=== PATIENT | male | born 1935 | race Caucasian/White ===

== ENCOUNTER → 2016-08-09 | Outpatient (CLI) | payer OTHER ==
[~2016-08-09] MED LIST: ALBUAER3 IN; ASPI81CH43 GT; ATEN-60 OR; ATOR40TA52 PO; BENA10TA3 OR; FLUT500M6 IN; IBUP400T21 XX; MELO-85 PO; METF-312 OR; OMEP20CA5 PO; ZOLP10TA OR
[2016-08-09 09:24] LABS: Basophils # (auto) 0 uL; Basophils % (auto) 0.4 % (0.0-2.0); Eosinophils # (auto) 0.6 uL; Eosinophils % (auto) 9.4 % (0.0-7.0); Hemoglobin 12.9 g/dL (13.5-17.5); Lymphocytes # (auto) 0.8 uL; Lymphocytes % (auto) 12.2 % (10.0-50.0); Mean Corpuscular Hemoglobin 31.9 pg (28.0-32.0); Mean Corpuscular Hgb Conc. 31.5 g/dL (32.0-36.0); Mean Corpuscular Volume 101.3 fL (80.0-100.0); Mean Platelet Volume 9.8 fL (7.4-10.4); Monocytes # (auto) 0.6 uL; Neutrophils # (auto) 4.3 uL; Platelet Count (auto) 260 10^3/uL (140-450); Red Cell Distribution Width 13.9 % (11.6-16.0); SUSPECT VIEW TRANSMISSION; White Blood Cell 6.3 10^3/uL (4.4-10.8)
[2016-08-09 09:36] LABS: Urine Bilirubin Negative (Negative); Urine Blood Negative /uL (Negative); Urine Color Yellow (Yellow); Urine Glucose Normal (Normal); Urine Hyaline Cast FEW /lpf (0 - 2); Urine Ketone Negative (Negative); Urine Nitrite Negative (Negative); Urine RBC <1 /hpf (0 - 3); Urine Squamous Epithelial Cell FEW /hpf (<5); Urine Urobilinogen Normal (Negative); Urine pH 5.5 (5.0-8.0)
[2016-08-09 10:05] LABS: Albumin 3.7 g/dL (3.4-5.0); BUN/Creatinine Ratio 19.5; Bilirubin, Total 1.1 mg/dL (0.2-1.0); Calcium 9.5 mg/dL (8.5-10.1); Potassium 5.3 mmol/L (3.5-5.1); Total Protein 7.3 g/dL (6.4-8.2)
== END | disposition home or self-care (01) ==
LOC: LAB 08:46
PROVIDERS: ATTEND Internal Medicine
DX: Z00.00 Encounter for general adult medical examination without abnormal findings (principal); E11.9 Type 2 diabetes mellitus without complications; E55.9 Vitamin D deficiency, unspecified
CPT/HCPCS: 36415; 80053; 80061; 81001; 82043; 82306; 83036; 84153; 85025

== ENCOUNTER → 2016-10-06 | Outpatient (CLI) | payer OTHER ==
[2016-10-06 10:47] LABS: Basophils # (auto) 0 uL; Basophils % (auto) 0.2 % (0.0-2.0); Eosinophils # (auto) 0.2 uL; Eosinophils % (auto) 4.4 % (0.0-7.0); Hematocrit 36.2 % (41.0-53.0); Hemoglobin 11.8 g/dL (13.5-17.5); Lymphocytes # (auto) 0.5 uL; Lymphocytes % (auto) 11.5 % (10.0-50.0); Mean Corpuscular Hemoglobin 31.8 pg (28.0-32.0); Mean Corpuscular Hgb Conc. 32.7 g/dL (32.0-36.0); Mean Corpuscular Volume 97.2 fL (80.0-100.0); Mean Platelet Volume 9.3 fL (7.4-10.4); Monocytes # (auto) 0.5 uL; Monocytes % (auto) 12.2 % (0.0-12.0); Neutrophils # (auto) 3.2 uL; Neutrophils % (auto) 71.7 % (37.0-80.0); Platelet Count (auto) 202 10^3/uL (140-450); Red Cell Distribution Width 15.3 % (11.6-16.0); White Blood Cell 4.4 10^3/uL (4.4-10.8)
[2016-10-06 11:11] LABS: Albumin 3.6 g/dL (3.4-5.0); BUN/Creatinine Ratio 17.7; Bilirubin, Total 1.1 mg/dL (0.2-1.0); Calcium 8.8 mg/dL (8.5-10.1); Potassium 5.2 mmol/L (3.5-5.1); Total Protein 6.9 g/dL (6.4-8.2)
== END | disposition home or self-care (01) ==
LOC: LAB 10:30
PROVIDERS: ATTEND Internal Medicine
DX: C34.11 Malignant neoplasm of upper lobe, right bronchus or lung (principal); C61 Malignant neoplasm of prostate
CPT/HCPCS: 36415; 80053; 83615; 84153; 85025

== ENCOUNTER → 2016-11-02 | Outpatient (CLI) | payer OTHER ==
[~2016-11-02] VITALS: Ht 180.3 cm; Wt 80.3 kg
[~2016-11-02] MED LIST changes: +ADENOSINE 67 MG in GIVE UN-DILUTED 0 ML IV STA; +ALBUTEROL SULF 2.5 MG/0.5ML(0.5%) NEB SOLN NEB ONE; +IPRATROPIUM BROM 0.5 MG/2.5ML INH SOL NEB ONE
== END | disposition home or self-care (01) ==
LOC: XY 08:40
PROVIDERS: ATTEND Internal Medicine Cardiovascular Disease
DX: I08.1 Rheumatic disorders of both mitral and tricuspid valves (principal); I27.2 Other secondary pulmonary hypertension
CPT/HCPCS: 78452; 93017; 93306; 96374; A9500; J0153

== ENCOUNTER → 2016-11-08 | Outpatient (CLI) | payer OTHER ==
[~2016-11-08] MED LIST changes: -ADENOSINE 67 MG in GIVE UN-DILUTED 0 ML IV STA; -ALBUTEROL SULF 2.5 MG/0.5ML(0.5%) NEB SOLN NEB ONE; -IPRATROPIUM BROM 0.5 MG/2.5ML INH SOL NEB ONE
[2016-11-08 15:39] LABS: Potassium 4.8 mmol/L (3.5-5.1)
[2016-11-08 15:44] LABS: BUN/Creatinine Ratio 31.3; Calcium 8.4 mg/dL (8.5-10.1)
== END | disposition home or self-care (01) ==
LOC: LAB 14:49
PROVIDERS: ATTEND Internal Medicine
DX: I27.2 Other secondary pulmonary hypertension (principal); E11.42 Type 2 diabetes mellitus with diabetic polyneuropathy
CPT/HCPCS: 36415; 80048

== ENCOUNTER → 2016-12-12 | Outpatient (CLI) | payer OTHER ==
[~2016-12-12] MED LIST changes: -BENA10TA3 OR; +BENA10TA9 OR; -METF-312 OR; +METF-370 OR; -OMEP20CA5 PO; +OMEP20CA74 PO
[2016-12-12 09:40] LABS: Basophils # (auto) 0 uL; Basophils % (auto) 0.3 % (0.0-2.0); CONDITION Y; Eosinophils # (auto) 0.2 uL; Eosinophils % (auto) 3.2 % (0.0-7.0); Hematocrit 35.8 % (41.0-53.0); Hemoglobin 11.8 g/dL (13.5-17.5); Lymphocytes # (auto) 0.6 uL; Lymphocytes % (auto) 9.7 % (10.0-50.0); Mean Corpuscular Hemoglobin 31.8 pg (28.0-32.0); Mean Corpuscular Volume 96.3 fL (80.0-100.0); Mean Platelet Volume 9.2 fL (7.4-10.4); Monocytes # (auto) 0.7 uL; Monocytes % (auto) 11.9 % (0.0-12.0); Neutrophils # (auto) 4.4 uL; Neutrophils % (auto) 74.9 % (37.0-80.0); Platelet Count (auto) 180 10^3/uL (140-450); Red Cell Distribution Width 17.5 % (11.6-16.0); White Blood Cell 5.8 10^3/uL (4.4-10.8)
[2016-12-12 10:41] LABS: Albumin 3.7 g/dL (3.4-5.0); BUN/Creatinine Ratio 18.5; Bilirubin, Total 1.1 mg/dL (0.2-1.0); Calcium 9.5 mg/dL (8.5-10.1); Total Protein 6.9 g/dL (6.4-8.2)
[2016-12-12 10:42] LABS: Uric Acid 11.1 mg/dL (3.5-7.2)
== END | disposition home or self-care (01) ==
LOC: LAB 09:15
DX: M10.00 Idiopathic gout, unspecified site (principal); M45.0 Ankylosing spondylitis of multiple sites in spine; Z79.899 Other long term (current) drug therapy; M06.9 Rheumatoid arthritis, unspecified; M25.50 Pain in unspecified joint; D64.9 Anemia, unspecified; I10 Essential (primary) hypertension
CPT/HCPCS: 36415; 80053; 84550; 85025; 85652; 86141; 86200; 86431; 86812

== ENCOUNTER → 2016-12-19 | Outpatient (CLI) | payer OTHER | END | disposition home or self-care (01) | LOC: LAB 11:00 | PROVIDERS: ATTEND Physician Assistant | DX: D04.8 Carcinoma in situ of skin of other sites (principal) ==

== ENCOUNTER → 2017-01-24 | Outpatient (CLI) | payer OTHER | END | disposition home or self-care (01) | LOC: LAB 10:00 | PROVIDERS: ATTEND Physician Assistant | DX: C44.319 Basal cell carcinoma of skin of other parts of face (principal) ==

== ENCOUNTER → 2017-02-06 | Outpatient (CLI) | payer OTHER ==
[2017-02-06 12:05] LABS: Basophils # (auto) 0 uL; Basophils % (auto) 0.2 % (0.0-2.0); CONDITION Y; Eosinophils # (auto) 0.2 uL; Eosinophils % (auto) 2.4 % (0.0-7.0); Hematocrit 34.6 % (41.0-53.0); Hemoglobin 11.5 g/dL (13.5-17.5); Lymphocytes # (auto) 0.5 uL; Lymphocytes % (auto) 7.5 % (10.0-50.0); Mean Corpuscular Hemoglobin 31.4 pg (28.0-32.0); Mean Corpuscular Hgb Conc. 33.2 g/dL (32.0-36.0); Mean Corpuscular Volume 94.4 fL (80.0-100.0); Mean Platelet Volume 10.6 fL (7.4-10.4); Monocytes # (auto) 0.6 uL; Monocytes % (auto) 8.9 % (0.0-12.0); Neutrophils # (auto) 5.5 uL; Platelet Count (auto) 211 10^3/uL (140-450); Red Cell Distribution Width 16.4 % (11.6-16.0); SUSPECT SEE PRINTOUT; White Blood Cell 6.7 10^3/uL (4.4-10.8)
[2017-02-06 17:34] LABS: Potassium 4.4 mmol/L (3.5-5.1)
[2017-02-06 17:40] LABS: Albumin 3.7 g/dL (3.4-5.0); BUN/Creatinine Ratio 20.1; Calcium 8.7 mg/dL (8.5-10.1)
[2017-02-06 17:59] LABS: Bilirubin, Total 0.9 mg/dL (0.2-1.0); Total Protein 6.6 g/dL (6.4-8.2)
== END | disposition home or self-care (01) ==
LOC: LAB 10:03
PROVIDERS: ATTEND Internal Medicine
DX: C61 Malignant neoplasm of prostate (principal); J44.9 Chronic obstructive pulmonary disease, unspecified; Z95.1 Presence of aortocoronary bypass graft
CPT/HCPCS: 36415; 80053; 83615; 84153; 85025

== ENCOUNTER → 2017-03-28 | Outpatient (CLI) | payer OTHER | LOC: XYW 10:51 | PROVIDERS: ATTEND Internal Medicine Cardiovascular Disease | DX: I08.3 Combined rheumatic disorders of mitral, aortic and tricuspid valves (principal) | CPT/HCPCS: 93306 ==

== ENCOUNTER → 2017-06-06 | Outpatient (CLI) | payer OTHER ==
[~2017-06-06] MED LIST changes: +APIX2.5T OR; +CHOL20007 OR; +COLC1TAB3 PO; +FURO20TA3 PO; +GABA100C9 PO; +GLYB5TAB8 PO; -MELO-85 PO; +MELO1TAB73 PO; +SILD20TA12 OR
== END | disposition home or self-care (01) ==
LOC: LAB 08:47
PROVIDERS: ATTEND Physician Assistant
DX: C44.319 Basal cell carcinoma of skin of other parts of face (principal)

== ENCOUNTER → 2017-06-06 | Outpatient (CLI) | payer OTHER ==
[~2017-06-06] MED LIST changes: -APIX2.5T OR; -CHOL20007 OR; -COLC1TAB3 PO; -FURO20TA3 PO; -GABA100C9 PO; -GLYB5TAB8 PO; -SILD20TA12 OR
[2017-06-06 12:49] LABS: Basophils # (auto) 0 uL; Basophils % (auto) 0.7 % (0.0-2.0); Eosinophils # (auto) 0.2 uL; Eosinophils % (auto) 4.1 % (0.0-7.0); Lymphocytes # (auto) 0.4 uL; Lymphocytes % (auto) 8.5 % (10.0-50.0); Mean Corpuscular Hemoglobin 29.5 pg (28.0-32.0); Mean Corpuscular Hgb Conc. 32.5 g/dL (32.0-36.0); Mean Corpuscular Volume 90.7 fL (80.0-100.0); Mean Platelet Volume 10.2 fL (6.9-10.8); Monocytes # (auto) 0.6 uL; Monocytes % (auto) 14.5 % (0.0-12.0); Neutrophils # (auto) 3.2 uL; Neutrophils % (auto) 72.2 % (37.0-80.0); Platelet Count (auto) 168 10^3/uL (140-450); Red Cell Distribution Width 18.5 % (11.8-14.3); White Blood Cell 4.5 10^3/uL (4.4-10.8)
[2017-06-06 13:07] LABS: Albumin 3.8 g/dL (3.4-5.0); BUN/Creatinine Ratio 16.7; Calcium 8.9 mg/dL (8.5-10.1); Potassium 4.2 mmol/L (3.5-5.1)
[2017-06-06 13:11] LABS: Bilirubin, Total 1.2 mg/dL (0.2-1.0); Total Protein 7.1 g/dL (6.4-8.2)
== END | disposition home or self-care (01) ==
LOC: LAB 11:00
PROVIDERS: ATTEND Internal Medicine
DX: C34.11 Malignant neoplasm of upper lobe, right bronchus or lung (principal); C61 Malignant neoplasm of prostate
CPT/HCPCS: 36415; 80053; 83615; 84153; 85025

== ENCOUNTER → 2017-08-08 | Outpatient (CLI) | payer OTHER ==
[~2017-08-08] MED LIST changes: +APIX2.5T OR; +CHOL20007 OR; +COLC1TAB3 PO; +FURO20TA3 PO; +GABA100C9 PO; +GLYB5TAB8 PO; +SILD20TA12 OR
[2017-08-08 15:00] LABS: Basophils # (auto) 0.1 uL; Basophils % (auto) 1.1 % (0.0-2.0); Eosinophils # (auto) 0.1 uL; Eosinophils % (auto) 1.6 % (0.0-7.0); Hematocrit 32.4 % (41.0-53.0); Hemoglobin 10.6 g/dL (13.5-17.5); Lymphocytes # (auto) 0.4 uL; Lymphocytes % (auto) 7.3 % (10.0-50.0); Mean Corpuscular Hemoglobin 29.8 pg (28.0-32.0); Mean Corpuscular Hgb Conc. 32.7 g/dL (32.0-36.0); Mean Corpuscular Volume 91.2 fL (80.0-100.0); Monocytes # (auto) 0.7 uL; Monocytes % (auto) 12.6 % (0.0-12.0); Neutrophils # (auto) 4.4 uL; Neutrophils % (auto) 77.4 % (37.0-80.0); Platelet Count (auto) 188 10^3/uL (140-450); Red Blood Cells 3.55 10^6/uL (4.5-5.90); Red Cell Distribution Width 18.7 % (11.8-14.3); White Blood Cell 5.7 10^3/uL (4.4-10.8)
[2017-08-08 15:33] LABS: Albumin 3.7 g/dL (3.4-5.0); BUN/Creatinine Ratio 18.5; Bilirubin, Total 1.3 mg/dL (0.2-1.0); Calcium 8.9 mg/dL (8.5-10.1); Potassium 4.3 mmol/L (3.5-5.1); Total Protein 6.9 g/dL (6.4-8.2)
== END | disposition home or self-care (01) ==
LOC: LAB 13:54
PROVIDERS: ATTEND Internal Medicine
DX: C34.11 Malignant neoplasm of upper lobe, right bronchus or lung (principal); C61 Malignant neoplasm of prostate
CPT/HCPCS: 36415; 80053; 83615; 84153; 85025

== ENCOUNTER 2017-08-12 14:53 | Inpatient (IN) | payer OTHER ==
[~2017-08-12] VITALS: Ht 180.3 cm; Wt 90.0 kg
[~2017-08-12 14:53] MED LIST changes: -APIX2.5T OR; -CHOL20007 OR; -COLC1TAB3 PO; -FURO20TA3 PO; -GABA100C9 PO; -GLYB5TAB8 PO; -SILD20TA12 OR
[2017-08-12] MEDS ORDERED: SODIUM CHLORIDE 0.9% 1,000 ML IV ONE (16:34)
[2017-08-12] MEDS ORDERED: ONDANSETRON HCL 4 MG/2 ML VIAL IV ONE (16:45)
[2017-08-12] MEDS ORDERED: KETOROLAC TROMETH 30 MG/ML 1ML VIAL IV ONE (16:45)
[2017-08-12 17:26] LABS: Basophils # (auto) 0.1 uL; Basophils % (auto) 1.3 % (0.0-2.0); Eosinophils # (auto) 0.2 uL; Eosinophils % (auto) 3.1 % (0.0-7.0); Hemoglobin 9.1 g/dL (13.5-17.5); Lymphocytes # (auto) 0.4 uL; Lymphocytes % (auto) 6.7 % (10.0-50.0); Mean Corpuscular Hemoglobin 29.3 pg (28.0-32.0); Mean Corpuscular Hgb Conc. 32.6 g/dL (32.0-36.0); Monocytes # (auto) 0.8 uL; Monocytes % (auto) 12.2 % (0.0-12.0); Neutrophils # (auto) 4.9 uL; Neutrophils % (auto) 76.7 % (37.0-80.0); Nucleated Red Blood Cells % 0.4 %; Platelet Count (auto) 165 10^3/uL (140-450); Red Blood Cells 3.11 10^6/uL (4.5-5.90); Red Cell Distribution Width 18.3 % (11.8-14.3); White Blood Cell 6.4 10^3/uL (4.4-10.8)
[2017-08-12 17:53] LABS: Albumin 3.6 g/dL (3.4-5.0); BUN/Creatinine Ratio 18.6; Bilirubin, Total 1.2 mg/dL (0.2-1.0); Calcium 8.9 mg/dL (8.5-10.1); Magnesium 2.3 mg/dL (1.6-2.6); Potassium 3.9 mmol/L (3.5-5.1); Total Protein 6.6 g/dL (6.4-8.2)
[2017-08-12] MEDS ORDERED: ACETAMINOPHEN 325 MG TAB PO PRN (19:30)
[2017-08-12] MEDS ORDERED: DOCUSATE SOD 100 MG CAP PO PRN (19:30)
[2017-08-12] MEDS ORDERED: HYDROcodone-ACET 5/325MG TAB PO PRN (19:30)
[2017-08-12] MEDS ORDERED: ONDANSETRON HCL 4 MG/2 ML VIAL IV PRN (19:30)
[2017-08-12] MEDS ORDERED: NITROGLYCERIN 0.4 MG SL TAB SL PRN (19:30)
[2017-08-12] MEDS ORDERED: HYDROmorphone HCL 2 MG/ML VL IV PRN (20:00)
[2017-08-12] MEDS ORDERED: DEXTROSE (50%) 50ML SYRG IV PRN (20:00)
[2017-08-12] MEDS: SILDENAFIL CITRATE 20 MG TAB PO SCH (20:16)
[2017-08-12 21:00] VITALS: BP 82/48
[2017-08-12 21:30] VITALS: BP 82/48
[2017-08-12] MEDS: SYMBICORT IN SCH (22:00)
[2017-08-12] MEDS: APIXABAN 2.5 MG TAB PO SCH (22:00)
[2017-08-12] MEDS: SODIUM CHLOR 0.9% PF (SALINE LOCK) 10ML VIAL IV SCH (22:20)
[2017-08-12] MEDS: GABAPENTIN 100 MG CAP PO SCH (22:20)
[2017-08-12] MEDS: ATORVASTATIN 20 MG TAB PO SCH (22:20)
[2017-08-12] MEDS: ACCU-CHEK COMFORT CURVE STRIP VI SCH (22:21)
[2017-08-12] MEDS: FAMOTIDINE 20 MG TAB PO SCH (22:21)
[2017-08-12] MEDS: InsuLIN REG 1unit/0.01ml Soln (100units/ml) SC SCH (22:31)
[2017-08-12] MEDS: TEMAZEPAM 15 MG CAP PO PRN (22:34)
[2017-08-12 23:16] LABS: Urine Bacteria NONE SEEN /hpf (None Seen); Urine Blood Negative /uL (Negative); Urine Hyaline Cast MOD /lpf (0 - 2); Urine Specific Gravity 1.013 (1.001-1.035); Urine WBC 1 /hpf (0 - 3)
[2017-08-13] VITALS (7 sets, daily range): BP systolic 84–96; BP diastolic 39–61
[2017-08-13] MEDS ORDERED: FURO20TA3 PO (00:07)
[2017-08-13] MEDS ORDERED: CHOL20007 OR (00:07)
[2017-08-13] MEDS ORDERED: GABA100C9 PO (00:07)
[2017-08-13] MEDS ORDERED: SILD20TA12 OR (00:07)
[2017-08-13] MEDS ORDERED: GLYB5TAB8 PO (00:07)
[2017-08-13] MEDS ORDERED: APIX2.5T OR (00:07)
[2017-08-13] MEDS ORDERED: COLC1TAB3 PO (00:07)
[2017-08-13] MEDS: SODIUM CHLOR 0.9% PF (SALINE LOCK) 10ML VIAL IV SCH ×3 (06:13→21:29)
[2017-08-13] MEDS: ACCU-CHEK COMFORT CURVE STRIP VI SCH ×4 (06:29→21:29)
[2017-08-13] MEDS: glipiZIDE 5 MG TAB PO SCH (06:30)
[2017-08-13] MEDS: InsuLIN REG 1unit/0.01ml Soln (100units/ml) SC SCH ×4 (06:30→22:00)
[2017-08-13 07:30] LABS: Basophils # (auto) 0 uL; Basophils % (auto) 0.7 % (0.0-2.0); Eosinophils # (auto) 0.3 uL; Eosinophils % (auto) 5.5 % (0.0-7.0); Hematocrit 26.3 % (41.0-53.0); Hemoglobin 8.7 g/dL (13.5-17.5); Lymphocytes # (auto) 0.4 uL; Lymphocytes % (auto) 6.5 % (10.0-50.0); Mean Corpuscular Hemoglobin 29.5 pg (28.0-32.0); Mean Corpuscular Volume 89.6 fL (80.0-100.0); Monocytes # (auto) 0.7 uL; Monocytes % (auto) 12.2 % (0.0-12.0); Neutrophils # (auto) 4.3 uL; Neutrophils % (auto) 75.1 % (37.0-80.0); Platelet Count (auto) 149 10^3/uL (140-450); Red Blood Cells 2.93 10^6/uL (4.5-5.90); White Blood Cell 5.7 10^3/uL (4.4-10.8)
[2017-08-13] MEDS: SILDENAFIL CITRATE 20 MG TAB PO SCH ×3 (07:41→19:36)
[2017-08-13 08:45] LABS: Albumin 3.3 g/dL (3.4-5.0); Bilirubin, Total 1.3 mg/dL (0.2-1.0); Calcium 8.3 mg/dL (8.5-10.1); Potassium 4.3 mmol/L (3.5-5.1); Total Protein 6.4 g/dL (6.4-8.2)
[2017-08-13] MEDS: SYMBICORT IN SCH ×2 (10:00→22:00)
[2017-08-13] MEDS ORDERED: ATENOLOL 25 MG TAB PO SCH (10:00)
[2017-08-13] MEDS ORDERED: SYMBICORT IN SCH (10:00)
[2017-08-13] MEDS ORDERED: ENOXAPARIN SOD 40 MG/0.4 ML SYRINGE SC SCH (10:00)
[2017-08-13] MEDS ORDERED: PATIENTS OWN MEDICATION PO SCH (10:00)
[2017-08-13] MEDS: BENAZEPRIL HCL 10 MG TAB PO SCH (10:00)
[2017-08-13] MEDS: COLCHICINE 0.6 MG TAB PO SCH (10:36)
[2017-08-13] MEDS: ASPirin-EC 81 mg tab PO SCH (10:36)
[2017-08-13] MEDS: PANTOPRAZOLE 40 MG TAB PO SCH (10:36)
[2017-08-13] MEDS: CHOLECALCIFEROL (VITD3) 1,000 UNIT TAB PO SCH (10:36)
[2017-08-13] MEDS: MULTIPLE VITAMIN TAB PO SCH (10:36)
[2017-08-13] MEDS: FUROSEMIDE 20 MG TAB PO SCH (10:37)
[2017-08-13] MEDS: APIXABAN 2.5 MG TAB PO SCH ×2 (10:37→21:28)
[2017-08-13] MEDS: FAMOTIDINE 20 MG TAB PO SCH ×2 (10:38→21:27)
[2017-08-13] MEDS ORDERED: HYDROcodone-ACET 5/325MG TAB PO PRN (11:00)
[2017-08-13] MEDS ORDERED: SODIUM CHLORIDE 0.9% 1,000 ML IV ONE (11:15)
[2017-08-13] MEDS: CALCIUM CARB 500 MG CHEW TAB PO SCH ×2 (11:35→21:28)
[2017-08-13] MEDS: METOPROLOL TARTRATE 25 MG TAB PO SCH ×2 (15:36→21:28)
[2017-08-13] MEDS: ATORVASTATIN 20 MG TAB PO SCH (21:28)
[2017-08-13] MEDS: GABAPENTIN 100 MG CAP PO SCH (21:28)
[2017-08-13] MEDS: TEMAZEPAM 15 MG CAP PO PRN (22:23)
[2017-08-14 05:02] VITALS: BP 98/70
[2017-08-14] MEDS: SODIUM CHLOR 0.9% PF (SALINE LOCK) 10ML VIAL IV SCH ×2 (06:28→14:00)
[2017-08-14] MEDS: glipiZIDE 5 MG TAB PO SCH (06:30)
[2017-08-14] MEDS: InsuLIN REG 1unit/0.01ml Soln (100units/ml) SC SCH ×2 (06:30→11:30)
[2017-08-14] MEDS: ACCU-CHEK COMFORT CURVE STRIP VI SCH ×2 (06:30→11:30)
[2017-08-14 06:46] LABS: Basophils # (auto) 0.1 uL; Basophils % (auto) 0.8 % (0.0-2.0); Eosinophils # (auto) 0.3 uL; Eosinophils % (auto) 3.9 % (0.0-7.0); Hematocrit 26.7 % (41.0-53.0); Hemoglobin 8.7 g/dL (13.5-17.5); Lymphocytes # (auto) 0.5 uL; Lymphocytes % (auto) 6.3 % (10.0-50.0); Mean Corpuscular Hemoglobin 29.5 pg (28.0-32.0); Mean Corpuscular Hgb Conc. 32.7 g/dL (32.0-36.0); Mean Corpuscular Volume 90.3 fL (80.0-100.0); Monocytes % (auto) 13.6 % (0.0-12.0); Neutrophils # (auto) 5.8 uL; Neutrophils % (auto) 75.4 % (37.0-80.0); Nucleated Red Blood Cells % 0.2 %; Platelet Count (auto) 168 10^3/uL (140-450); Red Blood Cells 2.95 10^6/uL (4.5-5.90); Red Cell Distribution Width 18.2 % (11.8-14.3); White Blood Cell 7.7 10^3/uL (4.4-10.8)
[2017-08-14 07:02] LABS: BUN/Creatinine Ratio 20.1; Calcium 8.6 mg/dL (8.5-10.1); Potassium 4.5 mmol/L (3.5-5.1)
[2017-08-14 08:30] VITALS: BP 84/50
[2017-08-14] MEDS: FUROSEMIDE 20 MG TAB PO SCH (10:00)
[2017-08-14] MEDS: METOPROLOL TARTRATE 25 MG TAB PO SCH (10:00)
[2017-08-14] MEDS: BENAZEPRIL HCL 10 MG TAB PO SCH (10:00)
[2017-08-14] MEDS: SYMBICORT IN SCH (10:00)
[2017-08-14] MEDS: CHOLECALCIFEROL (VITD3) 1,000 UNIT TAB PO SCH (10:17)
[2017-08-14] MEDS: FAMOTIDINE 20 MG TAB PO SCH (10:17)
[2017-08-14] MEDS: COLCHICINE 0.6 MG TAB PO SCH (10:17)
[2017-08-14] MEDS: MULTIPLE VITAMIN TAB PO SCH (10:17)
[2017-08-14] MEDS: APIXABAN 2.5 MG TAB PO SCH (10:17)
[2017-08-14] MEDS: CALCIUM CARB 500 MG CHEW TAB PO SCH (10:17)
[2017-08-14] MEDS: SILDENAFIL CITRATE 20 MG TAB PO SCH ×2 (10:18→14:00)
[2017-08-14] MEDS: ASPirin-EC 81 mg tab PO SCH (10:18)
[2017-08-14] MEDS: PANTOPRAZOLE 40 MG TAB PO SCH (10:18)
[2017-08-14] MEDS ORDERED: SODIUM CHLORIDE 0.9% 1,000 ML IV ONE (11:00)
[2017-08-14] MEDS ORDERED: guaiFENesin-DM 100/10mg/5ml SYR PO PRN (11:30)
[2017-08-14] MEDS ORDERED: BUDESONIDE (INHALATION) 0.5 MG/2 ML NEB NEB SCH (12:00)
[2017-08-14] MEDS ORDERED: ALBUTEROL SULF 2.5 MG/0.5ML(0.5%) NEB SOLN NEB SCH (12:00)
[2017-08-14 14:24] VITALS: BP 88/58
[2017-08-14 15:00] VITALS: BP 93/53
== END 2017-08-14 16:00 | disposition home health service (06) | DRG 536 ==
LOC: ER 14:53 → EDBD 14:53 → TELE 14:54 → TELE-CENTR 21:00
PROVIDERS: ADMIT Internal Medicine; ATTEND Internal Medicine
DX: S32.592A Other specified fracture of left pubis, initial encounter for closed fracture (principal); E11.21 Type 2 diabetes mellitus with diabetic nephropathy; E11.40 Type 2 diabetes mellitus with diabetic neuropathy, unspecified; I48.1 Persistent atrial fibrillation; E11.22 Type 2 diabetes mellitus with diabetic chronic kidney disease; S32.392A Other fracture of left ilium, initial encounter for closed fracture; D64.9 Anemia, unspecified; E78.00 Pure hypercholesterolemia, unspecified; E78.5 Hyperlipidemia, unspecified; I12.9 Hypertensive chronic kidney disease with stage 1 through stage 4 chronic kidney disease, or unspecified chronic kidney disease; I25.10 Atherosclerotic heart disease of native coronary artery without angina pectoris; I48.2 Chronic atrial fibrillation; I27.20 Pulmonary hypertension, unspecified; J44.9 Chronic obstructive pulmonary disease, unspecified; M10.9 Gout, unspecified; W18.39XA Other fall on same level, initial encounter; M85.88 Other specified disorders of bone density and structure, other site; K21.9 Gastro-esophageal reflux disease without esophagitis; N18.3 Chronic kidney disease, stage 3 (moderate); M11.29 Other chondrocalcinosis, multiple sites; Z85.118 Personal history of other malignant neoplasm of bronchus and lung; Z85.46 Personal history of malignant neoplasm of prostate; Z87.891 Personal history of nicotine dependence; Z88.1 Allergy status to other antibiotic agents; Z88.0 Allergy status to penicillin; Z88.5 Allergy status to narcotic agent; Z79.899 Other long term (current) drug therapy; Y92.098 Other place in other non-institutional residence as the place of occurrence of the external cause; Y93.89 Activity, other specified; Y99.8 Other external cause status
CPT/HCPCS: 36415; 71045; 73502; 73700; 80048; 80053; 81001; 82962; 83036; 83735; 85025; 87086; 94640; 96361; 96374; 96375; 97163; J1815; J1885; J2405

== ENCOUNTER → 2017-09-12 | Outpatient (CLI) | payer OTHER ==
[~2017-09-12] MED LIST changes: -ALBUAER3 IN; +APIX2.5T OR; -BENA10TA9 OR; +CHOL20007 OR; +COLC1TAB3 PO; -FLUT500M6 IN; +GABA100C9 PO; +GLYB5TAB8 PO; -IBUP400T21 XX; -MELO1TAB73 PO; -METF-370 OR; +SILD20TA12 OR
[2017-09-12 09:40] LABS: Basophils # (auto) 0.1 uL; Basophils % (auto) 1.1 % (0.0-2.0); Eosinophils # (auto) 0.2 uL; Eosinophils % (auto) 4.2 % (0.0-7.0); Hematocrit 30.1 % (41.0-53.0); Hemoglobin 9.8 g/dL (13.5-17.5); Lymphocytes # (auto) 0.6 uL; Mean Corpuscular Hemoglobin 28.7 pg (28.0-32.0); Mean Corpuscular Hgb Conc. 32.5 g/dL (32.0-36.0); Mean Corpuscular Volume 88.4 fL (80.0-100.0); Monocytes # (auto) 0.7 uL; Monocytes % (auto) 11.9 % (0.0-12.0); Neutrophils % (auto) 72.8 % (37.0-80.0); Nucleated Red Blood Cells % 0.1 %; Platelet Count (auto) 194 10^3/uL (140-450); Red Cell Distribution Width 19.5 % (11.8-14.3); White Blood Cell 5.5 10^3/uL (4.4-10.8)
[2017-09-12 10:01] LABS: Albumin 3.6 g/dL (3.4-5.0); BUN/Creatinine Ratio 15.2; Bilirubin, Total 1.3 mg/dL (0.2-1.0); Calcium 8.8 mg/dL (8.5-10.1); Potassium 4.1 mmol/L (3.5-5.1); Total Protein 6.9 g/dL (6.4-8.2)
== END | disposition home or self-care (01) ==
LOC: LAB 09:15
PROVIDERS: ATTEND Internal Medicine
DX: I13.0 Hypertensive heart and chronic kidney disease with heart failure and stage 1 through stage 4 chronic kidney disease, or unspecified chronic kidney disease (principal); E11.22 Type 2 diabetes mellitus with diabetic chronic kidney disease; N18.9 Chronic kidney disease, unspecified; I50.9 Heart failure, unspecified; C61 Malignant neoplasm of prostate; E78.2 Mixed hyperlipidemia; J44.9 Chronic obstructive pulmonary disease, unspecified
CPT/HCPCS: 36415; 80053; 80061; 83036; 83615; 84153; 85025

== ENCOUNTER → 2017-09-25 | Outpatient (CLI) | payer OTHER ==
[2017-09-25 13:59] LABS: Albumin 3.3 g/dL (3.4-5.0); Potassium 4.3 mmol/L (3.5-5.1)
[2017-09-25 14:02] LABS: Bilirubin, Total 1.4 mg/dL (0.2-1.0); Total Protein 6.3 g/dL (6.4-8.2)
== END | disposition home or self-care (01) ==
LOC: LAB 12:50
PROVIDERS: ATTEND Internal Medicine
DX: C34.10 Malignant neoplasm of upper lobe, unspecified bronchus or lung (principal)
CPT/HCPCS: 36415; 80053

== ENCOUNTER → 2017-10-04 | Outpatient (CLI) | payer OTHER | END | disposition home or self-care (01) | LOC: LAB 11:18 | PROVIDERS: ATTEND Internal Medicine Cardiovascular Disease | DX: I13.0 Hypertensive heart and chronic kidney disease with heart failure and stage 1 through stage 4 chronic kidney disease, or unspecified chronic kidney disease (principal); E11.22 Type 2 diabetes mellitus with diabetic chronic kidney disease; N18.3 Chronic kidney disease, stage 3 (moderate); I50.9 Heart failure, unspecified; R60.0 Localized edema | CPT/HCPCS: 83880 ==

== ENCOUNTER → 2017-10-16 | Outpatient (CLI) | payer OTHER ==
[2017-10-16 14:09] LABS: BUN/Creatinine Ratio 21.2; Calcium 8.7 mg/dL (8.5-10.1); Potassium 3.7 mmol/L (3.5-5.1)
== END | disposition home or self-care (01) ==
LOC: LAB 13:06
PROVIDERS: ATTEND Internal Medicine Cardiovascular Disease
DX: I42.0 Dilated cardiomyopathy (principal); I13.0 Hypertensive heart and chronic kidney disease with heart failure and stage 1 through stage 4 chronic kidney disease, or unspecified chronic kidney disease; I48.91 Unspecified atrial fibrillation; I12.9 Hypertensive chronic kidney disease with stage 1 through stage 4 chronic kidney disease, or unspecified chronic kidney disease; E11.22 Type 2 diabetes mellitus with diabetic chronic kidney disease; N18.3 Chronic kidney disease, stage 3 (moderate); J44.9 Chronic obstructive pulmonary disease, unspecified; Z85.46 Personal history of malignant neoplasm of prostate
CPT/HCPCS: 36415; 80048; 83880

== ENCOUNTER → 2017-11-24 | Outpatient (CLI) | payer OTHER ==
[~2017-11-24] MED LIST changes: +CARV6.2551 PO; +FURO40TA PO; +GLIP-115 PO; +METO2.5T11 PO; +POTA10TA51 PO
[2017-11-24 10:34] LABS: Basophils # (auto) 0 uL; Lymphocytes # (auto) 0.3 uL; Monocytes # (auto) 0.7 uL; Neutrophils # (auto) 3.6 uL; Platelet Count (auto) 145 10^3/uL (140-450)
[2017-11-24 10:37] LABS: Basophils % (auto) 0.8 % (0.0-2.0); Eosinophils # (auto) 0.1 uL; Eosinophils % (auto) 3.1 % (0.0-7.0); Hematocrit 26.9 % (41.0-53.0); Hemoglobin 8.9 g/dL (13.5-17.5); Lymphocytes % (auto) 6.1 % (10.0-50.0); Mean Corpuscular Hemoglobin 27.1 pg (28.0-32.0); Mean Corpuscular Hgb Conc. 33.1 g/dL (32.0-36.0); Mean Corpuscular Volume 82.1 fL (80.0-100.0); Monocytes % (auto) 13.9 % (0.0-12.0); Neutrophils % (auto) 76.1 % (37.0-80.0); Red Blood Cells 3.28 10^6/uL (4.5-5.90); White Blood Cell 4.7 10^3/uL (4.4-10.8)
[2017-11-24 10:38] LABS: Red Cell Distribution Width 21.2 % (11.8-14.3)
[2017-11-24 10:46] LABS: INR 1.28 (0.9-1.15); Prothrombin Time 13.5 sec (9.27-12.13)
[2017-11-24 11:46] LABS: Albumin 3.2 g/dL (3.4-5.0); BUN/Creatinine Ratio 21.7; Bilirubin, Total 1.2 mg/dL (0.2-1.0); Calcium 8.6 mg/dL (8.5-10.1); Potassium 3.8 mmol/L (3.5-5.1); Total Protein 6.5 g/dL (6.4-8.2)
== END | disposition home or self-care (01) ==
LOC: LAB 09:55
PROVIDERS: ATTEND Internal Medicine Cardiovascular Disease
DX: Z01.818 Encounter for other preprocedural examination (principal); J44.9 Chronic obstructive pulmonary disease, unspecified; E11.22 Type 2 diabetes mellitus with diabetic chronic kidney disease; I12.9 Hypertensive chronic kidney disease with stage 1 through stage 4 chronic kidney disease, or unspecified chronic kidney disease; N18.3 Chronic kidney disease, stage 3 (moderate); R79.89 Other specified abnormal findings of blood chemistry; Z87.891 Personal history of nicotine dependence
CPT/HCPCS: 36415; 80053; 85025; 85610; 85730

== ENCOUNTER 2017-11-27 11:53 | Inpatient (IN) | payer OTHER ==
[~2017-11-27] VITALS: Ht 180.3 cm; Wt 78.0 kg
[~2017-11-27 11:53] MED LIST changes: -ASPI81CH43 GT; -ATEN-60 OR
[2017-11-27] MEDS ORDERED: NALOXONE HCL 1MG/ML 2ML SYRINGE IV ONE (13:45)
[2017-11-27] MEDS ORDERED: fentaNYL CITRATE 100 MCG/2 ML VL IV ONE (13:45)
[2017-11-27] MEDS ORDERED: MIDAZOLAM HCL 1MG/1ML-2 ML VIAL IV ONE (13:45)
[2017-11-27] MEDS ORDERED: FLUMAZENIL 0.1 MG/ML INJ 10ML MDV IV ONE (13:45)
[2017-11-27] MEDS ORDERED: BENZOCAINE (DENTAL) 20 % SPRAY 60ML MT ONE (13:45)
[2017-11-27] MEDS ORDERED: NALOXONE HCL 0.4 MG/ML VIAL ONE (13:55)
[2017-11-27] MEDS ORDERED: NITROGLYCERIN 0.4 MG SL TAB SL PRN (15:15)
[2017-11-27] MEDS ORDERED: MORPHINE SULFATE 8mg/ml INJ SDV IV PRN (15:15)
[2017-11-27] MEDS ORDERED: DEXTROSE (50%) 50ML SYRG IV PRN (15:45)
[2017-11-27] MEDS: LIDOCAINE VISCOUS 2% 15ML UD MT PRN ×3 (15:47→15:49)
[2017-11-27] MEDS: InsuLIN REG 1unit/0.01ml Soln (100units/ml) SC SCH ×2 (17:00→21:01)
[2017-11-27] MEDS: glipiZIDE 5 MG TAB PO SCH (17:00)
[2017-11-27 17:18] VITALS: BP 110/63
[2017-11-27] MEDS: ACCU-CHEK COMFORT CURVE STRIP VI SCH ×2 (17:36→21:03)
[2017-11-27] MEDS: FUROSEMIDE 40 MG/4 ML VIAL IV SCH (17:42)
[2017-11-27 17:54] VITALS: BP 110/63
[2017-11-27] MEDS: SILDENAFIL CITRATE 20 MG TAB PO SCH (19:58)
[2017-11-27] MEDS: GABAPENTIN 100 MG CAP PO SCH (21:00)
[2017-11-27] MEDS: POTASSIUM CHL 20 Meq TABLET PO SCH (21:00)
[2017-11-27] MEDS: SODIUM CHLOR 0.9% PF (SALINE LOCK) 10ML VIAL/SYR IV SCH (21:01)
[2017-11-27 22:00] VITALS: BP 90/56
[2017-11-28] VITALS (8 sets, daily range): BP systolic 89–101; BP diastolic 36–68
[2017-11-28] MEDS: InsuLIN REG 1unit/0.01ml Soln (100units/ml) SC SCH ×4 (06:00→21:55)
[2017-11-28] MEDS: ACCU-CHEK COMFORT CURVE STRIP VI SCH ×4 (06:01→21:56)
[2017-11-28] MEDS: SODIUM CHLOR 0.9% PF (SALINE LOCK) 10ML VIAL/SYR IV SCH ×3 (06:02→21:48)
[2017-11-28] MEDS: FUROSEMIDE 40 MG/4 ML VIAL IV SCH ×2 (06:03→17:33)
[2017-11-28] MEDS: POTASSIUM CHL 20 Meq TABLET PO SCH ×2 (06:03→17:33)
[2017-11-28] MEDS: glipiZIDE 5 MG TAB PO SCH ×3 (07:20→17:00)
[2017-11-28] MEDS: SILDENAFIL CITRATE 20 MG TAB PO SCH ×3 (09:06→20:00)
[2017-11-28] MEDS: GABAPENTIN 100 MG CAP PO SCH ×2 (09:06→21:46)
[2017-11-28] MEDS: METOLAZONE 5 MG TAB PO SCH (09:06)
[2017-11-28] MEDS ORDERED: ZOLPIDEM TARTRATE 5 MG TAB PO PRN (10:00)
[2017-11-28] MEDS ORDERED: FUROSEMIDE 40 MG TAB PO SCH (10:00)
[2017-11-28 11:24] LABS: Eosinophils # (auto) 0.1 uL; Hemoglobin 8.8 g/dL (13.5-17.5); Monocytes # (auto) 0.7 uL; Nucleated Red Blood Cells % 0.1 %
[2017-11-28 11:25] LABS: Basophils # (auto) 0 uL; Basophils % (auto) 0.2 % (0.0-2.0); Lymphocytes # (auto) 0.4 uL; Lymphocytes % (auto) 7.2 % (10.0-50.0); Mean Corpuscular Hemoglobin 26.5 pg (28.0-32.0); Mean Corpuscular Hgb Conc. 32.5 g/dL (32.0-36.0); Mean Corpuscular Volume 81.5 fL (80.0-100.0); Monocytes % (auto) 13.2 % (0.0-12.0); Neutrophils # (auto) 4.1 uL; Neutrophils % (auto) 77.4 % (37.0-80.0); Platelet Count (auto) 159 10^3/uL (140-450); Red Blood Cells 3.31 10^6/uL (4.5-5.90); White Blood Cell 5.3 10^3/uL (4.4-10.8)
[2017-11-28 11:30] LABS: Red Cell Distribution Width 21.6 % (11.8-14.3)
[2017-11-28 11:35] LABS: INR 1.34 (0.9-1.15); Partial Thromboplastin Time 28.5 sec (23.78-33.04); Prothrombin Time 14.1 sec (9.27-12.13)
[2017-11-28 11:43] LABS: Albumin 3.3 g/dL (3.4-5.0); BUN/Creatinine Ratio 21.8; Bilirubin, Total 1.5 mg/dL (0.2-1.0); Calcium 8.7 mg/dL (8.5-10.1); Total Protein 6.6 g/dL (6.4-8.2)
[2017-11-29 01:43] LABS: Urine Bacteria FEW /hpf (None Seen); Urine Blood Negative /uL (Negative); Urine Hyaline Cast FEW /lpf (0 - 2); Urine Mucus FEW (None Seen); Urine Specific Gravity 1.009 (1.001-1.035); Urine WBC <1 /hpf (0 - 3)
[2017-11-29 04:38] VITALS: BP 95/57
[2017-11-29] MEDS: FUROSEMIDE 40 MG/4 ML VIAL IV SCH (06:17)
[2017-11-29] MEDS: POTASSIUM CHL 20 Meq TABLET PO SCH (06:17)
[2017-11-29] MEDS: SODIUM CHLOR 0.9% PF (SALINE LOCK) 10ML VIAL/SYR IV SCH (06:17)
[2017-11-29] MEDS: InsuLIN REG 1unit/0.01ml Soln (100units/ml) SC SCH ×2 (06:32→11:06)
[2017-11-29] MEDS: ACCU-CHEK COMFORT CURVE STRIP VI SCH ×2 (06:33→11:06)
[2017-11-29] MEDS: glipiZIDE 5 MG TAB PO SCH ×2 (07:00→11:06)
[2017-11-29 09:00] VITALS: BP 100/59
[2017-11-29] MEDS: METOLAZONE 5 MG TAB PO SCH (09:05)
[2017-11-29] MEDS: GABAPENTIN 100 MG CAP PO SCH (09:05)
[2017-11-29] MEDS: SILDENAFIL CITRATE 20 MG TAB PO SCH (09:06)
[2017-11-29 13:00] VITALS: BP 90/56
== END 2017-11-29 15:05 | disposition home or self-care (01) | DRG 292 ==
LOC: CATH 11:53 → TELE-CENTR 11:54
PROVIDERS: ADMIT Internal Medicine Cardiovascular Disease; ATTEND Internal Medicine
PROC: B24BZZ4 Ultrasonography of Heart with Aorta, Transesophageal (ICD-10-PCS; principal; 2017-11-27)
PROC: 0W9G3ZZ Drainage of Peritoneal Cavity, Percutaneous Approach (ICD-10-PCS; 2017-11-28)
DX: I50.43 Acute on chronic combined systolic (congestive) and diastolic (congestive) heart failure (principal); D68.69 Other thrombophilia; R18.8 Other ascites; E11.22 Type 2 diabetes mellitus with diabetic chronic kidney disease; I27.20 Pulmonary hypertension, unspecified; I08.3 Combined rheumatic disorders of mitral, aortic and tricuspid valves; N18.3 Chronic kidney disease, stage 3 (moderate); I48.91 Unspecified atrial fibrillation; I25.10 Atherosclerotic heart disease of native coronary artery without angina pectoris; J44.9 Chronic obstructive pulmonary disease, unspecified; E78.5 Hyperlipidemia, unspecified; Z82.49 Family history of ischemic heart disease and other diseases of the circulatory system; Z87.891 Personal history of nicotine dependence; Z85.118 Personal history of other malignant neoplasm of bronchus and lung; Z85.46 Personal history of malignant neoplasm of prostate; Z95.1 Presence of aortocoronary bypass graft; Z95.2 Presence of prosthetic heart valve; Z90.2 Acquired absence of lung [part of]; Z88.0 Allergy status to penicillin; Z88.1 Allergy status to other antibiotic agents; Z88.5 Allergy status to narcotic agent; Z79.899 Other long term (current) drug therapy
CPT/HCPCS: 10022; 36415; 71045; 76705; 76942; 80053; 81001; 82962; 83036; 83986; 85025; 85610; 85730; 87205; 89051; 93306; 93312; 99152; J2250

== ENCOUNTER → 2017-12-05 | Outpatient (CLI) | payer OTHER ==
[~2017-12-05] MED LIST changes: -GLYB5TAB8 PO
[2017-12-05 14:14] LABS: Basophils # (auto) 0 uL; Eosinophils # (auto) 0.2 uL; Eosinophils % (auto) 5.7 % (0.0-7.0); Monocytes # (auto) 0.5 uL; Monocytes % (auto) 13.7 % (0.0-12.0); Neutrophils # (auto) 2.5 uL; White Blood Cell 3.6 10^3/uL (4.4-10.8)
[2017-12-05 14:17] LABS: Basophils % (auto) 0.9 % (0.0-2.0); Hematocrit 27.4 % (41.0-53.0); Lymphocytes # (auto) 0.4 uL; Lymphocytes % (auto) 10.7 % (10.0-50.0); Mean Corpuscular Hemoglobin 26.5 pg (28.0-32.0); Mean Corpuscular Hgb Conc. 32.8 g/dL (32.0-36.0); Mean Corpuscular Volume 80.8 fL (80.0-100.0); Nucleated Red Blood Cells % 0.1 %; Platelet Count (auto) 165 10^3/uL (140-450); Red Blood Cells 3.39 10^6/uL (4.5-5.90); Red Cell Distribution Width 21.5 % (11.8-14.3)
[2017-12-05 14:46] LABS: BUN/Creatinine Ratio 29.5; Calcium 8.5 mg/dL (8.5-10.1); Potassium 3.4 mmol/L (3.5-5.1); Uric Acid 13.8 mg/dL (3.5-7.2)
== END | disposition home or self-care (01) ==
LOC: LAB 13:57
PROVIDERS: ATTEND Internal Medicine Cardiovascular Disease
DX: I13.0 Hypertensive heart and chronic kidney disease with heart failure and stage 1 through stage 4 chronic kidney disease, or unspecified chronic kidney disease (principal); I50.9 Heart failure, unspecified; N18.3 Chronic kidney disease, stage 3 (moderate); E11.22 Type 2 diabetes mellitus with diabetic chronic kidney disease; I25.10 Atherosclerotic heart disease of native coronary artery without angina pectoris; E78.5 Hyperlipidemia, unspecified; E78.00 Pure hypercholesterolemia, unspecified; Z79.899 Other long term (current) drug therapy; Z79.82 Long term (current) use of aspirin
CPT/HCPCS: 36415; 80048; 83880; 84550; 85025

== ENCOUNTER 2018-02-07 10:33 | Inpatient (IN) | payer OTHER ==
[~2018-02-07] VITALS: Ht 180.3 cm; Wt 75.1 kg
[2018-02-07 12:00] VITALS: BP 108/59
[2018-02-07] MEDS ORDERED: GABA100C9 PO (12:29)
[2018-02-07] MEDS ORDERED: TEMA15CA91 PO (12:29)
[2018-02-07] MEDS ORDERED: MULT1TAB95 PO (12:29)
[2018-02-07] MEDS ORDERED: DEXTROSE (50%) 50ML SYRG IV PRN (12:30)
[2018-02-07] MEDS ORDERED: HYDROcodone-ACET 5/325MG TAB PO PRN (12:30)
[2018-02-07] MEDS ORDERED: NITROGLYCERIN 0.4 MG SL TAB SL PRN (12:30)
[2018-02-07] MEDS ORDERED: TEMAZEPAM 15 MG CAP PO PRN (12:30)
[2018-02-07] MEDS ORDERED: MORPHINE SULF INJ 2 MG/ML SYRINGE 1ML IV PRN (12:30)
[2018-02-07] MEDS ORDERED: FUROSEMIDE 40 MG TAB PO ONE (12:45)
[2018-02-07] MEDS ORDERED: POTASSIUM CHL 10 Meq TABLET PO ONE (13:00)
[2018-02-07] MEDS ORDERED: CARVEDILOL 3.125 MG TAB PO ONE (13:00)
[2018-02-07] MEDS ORDERED: PANTOPRAZOLE 40 MG TAB PO ONE (13:00)
[2018-02-07] MEDS ORDERED: COLCHICINE 0.6 MG TAB PO ONE (13:00)
[2018-02-07] MEDS ORDERED: METOLAZONE 5 MG TAB PO ONE (13:00)
[2018-02-07 13:12] LABS: Basophils # (auto) 0.1 uL; Basophils % (auto) 1.3 % (0.0-2.0); Eosinophils # (auto) 0.3 uL; Eosinophils % (auto) 6.5 % (0.0-7.0); Lymphocytes # (auto) 0.4 uL; Lymphocytes % (auto) 9.5 % (10.0-50.0); Mean Corpuscular Hemoglobin 27.7 pg (28.0-32.0); Mean Corpuscular Hgb Conc. 33.4 g/dL (32.0-36.0); Mean Corpuscular Volume 83.1 fL (80.0-100.0); Monocytes # (auto) 0.6 uL; Monocytes % (auto) 14.9 % (0.0-12.0); Neutrophils # (auto) 2.9 uL; Neutrophils % (auto) 67.8 % (37.0-80.0); Platelet Count (auto) 142 10^3/uL (140-450); Red Blood Cells 3.25 10^6/uL (4.5-5.90); White Blood Cell 4.3 10^3/uL (4.4-10.8)
[2018-02-07 13:19] LABS: Red Cell Distribution Width 23.7 % (11.8-14.3)
[2018-02-07 13:27] LABS: INR 1.26 (0.9-1.15); Prothrombin Time 13.3 sec (9.27-12.13)
[2018-02-07 13:32] LABS: Albumin 3.1 g/dL (3.4-5.0); BUN/Creatinine Ratio 24.3; Calcium 8.4 mg/dL (8.5-10.1); Potassium 3.9 mmol/L (3.5-5.1); Total Protein 6.5 g/dL (6.4-8.2)
[2018-02-07 17:00] VITALS: BP 92/58
[2018-02-07] MEDS: ACCU-CHEK COMFORT CURVE STRIP VI SCH ×2 (17:00→22:05)
[2018-02-07] MEDS: InsuLIN REG 1unit/0.01ml Soln (100units/ml) SC SCH ×2 (17:00→22:00)
[2018-02-07 20:00] VITALS: BP 93/54
[2018-02-07] MEDS ORDERED: ATORVASTATIN 20 MG TAB PO SCH (22:00)
[2018-02-07] MEDS: CARVEDILOL 3.125 MG TAB PO SCH (22:00)
[2018-02-07 22:50] VITALS: BP 93/54
[2018-02-08 05:15] VITALS: BP 107/61
[2018-02-08] MEDS: InsuLIN REG 1unit/0.01ml Soln (100units/ml) SC SCH ×2 (06:36→11:30)
[2018-02-08] MEDS: ACCU-CHEK COMFORT CURVE STRIP VI SCH ×2 (06:37→11:38)
[2018-02-08 08:13] LABS: Calcium 8.6 mg/dL (8.5-10.1); Potassium 3.5 mmol/L (3.5-5.1)
[2018-02-08 09:00] VITALS: BP 100/58
[2018-02-08] MEDS ORDERED: METOLAZONE 5 MG TAB PO SCH (10:00)
[2018-02-08] MEDS ORDERED: PANTOPRAZOLE 40 MG TAB PO SCH (10:00)
[2018-02-08] MEDS ORDERED: FUROSEMIDE 40 MG TAB PO SCH (10:00)
[2018-02-08] MEDS ORDERED: COLCHICINE 0.6 MG TAB PO SCH (10:00)
[2018-02-08] MEDS ORDERED: POTASSIUM CHL 10 Meq TABLET PO SCH (10:00)
[2018-02-08] MEDS: CARVEDILOL 3.125 MG TAB PO SCH (10:29)
[2018-02-08 13:00] VITALS: BP 100/64
== END 2018-02-08 14:55 | disposition hospice, home (50) | DRG 292 ==
LOC: TELE-WESTW 10:33
PROVIDERS: ADMIT Internal Medicine; ATTEND Internal Medicine
PROC: 0W9G3ZZ Drainage of Peritoneal Cavity, Percutaneous Approach (ICD-10-PCS; principal; 2018-02-08)
DX: I50.43 Acute on chronic combined systolic (congestive) and diastolic (congestive) heart failure (principal); D68.69 Other thrombophilia; R18.8 Other ascites; E11.22 Type 2 diabetes mellitus with diabetic chronic kidney disease; I48.91 Unspecified atrial fibrillation; M10.9 Gout, unspecified; N18.3 Chronic kidney disease, stage 3 (moderate); Z51.5 Encounter for palliative care; Z95.2 Presence of prosthetic heart valve; Z95.1 Presence of aortocoronary bypass graft; Z88.1 Allergy status to other antibiotic agents; Z88.8 Allergy status to other drugs, medicaments and biological substances; Z88.0 Allergy status to penicillin; Z79.899 Other long term (current) drug therapy
CPT/HCPCS: 10022; 36415; 49083; 71045; 76705; 76942; 80048; 80053; 82962; 85025; 85610; 85730; 87081

== ENCOUNTER → 2018-04-04 | Outpatient (CLI) | payer OTHER ==
[~2018-04-04] MED LIST changes: -CHOL20007 OR; +MULT1TAB95 PO; -SILD20TA12 OR; +TEMA15CA91 PO; -ZOLP10TA OR
[2018-04-04 11:13] LABS: Hemoglobin 9.5 g/dL (13.5-17.5); Lymphocytes # (auto) 0.4 uL; Monocytes # (auto) 0.7 uL; Neutrophils # (auto) 3.2 uL; White Blood Cell 4.6 10^3/uL (4.4-10.8)
[2018-04-04 11:15] LABS: Basophils # (auto) 0 uL; Basophils % (auto) 0.9 % (0.0-2.0); Eosinophils # (auto) 0.3 uL; Eosinophils % (auto) 5.7 % (0.0-7.0); Hematocrit 29.2 % (41.0-53.0); Lymphocytes % (auto) 9.3 % (10.0-50.0); Mean Corpuscular Hemoglobin 27.4 pg (28.0-32.0); Mean Corpuscular Hgb Conc. 32.5 g/dL (32.0-36.0); Mean Corpuscular Volume 84.1 fL (80.0-100.0); Monocytes % (auto) 14.6 % (0.0-12.0); Neutrophils % (auto) 69.5 % (37.0-80.0); Platelet Count (auto) 162 10^3/uL (140-450); Red Blood Cells 3.47 10^6/uL (4.5-5.90)
[2018-04-04 11:24] LABS: Calcium 8.2 mg/dL (8.5-10.1); Potassium 3.9 mmol/L (3.5-5.1); Total Protein 6.3 g/dL (6.4-8.2)
[2018-04-04 11:41] LABS: Red Cell Distribution Width 21.8 % (11.8-14.3)
== END | disposition home or self-care (01) ==
LOC: LAB 10:29
PROVIDERS: ATTEND Internal Medicine
DX: C61 Malignant neoplasm of prostate (principal)
CPT/HCPCS: 36415; 80053; 83615; 84153; 85025

== ENCOUNTER 2018-04-09 10:40 | Inpatient (IN) | payer OTHER ==
[~2018-04-09] VITALS: Ht 180.3 cm; Wt 74.8 kg
[2018-04-09 12:20] VITALS: BP 101/75
[2018-04-09 13:00] VITALS: BP 101/75
[2018-04-09] MEDS ORDERED: NITROGLYCERIN 0.4 MG SL TAB SL PRN (13:00)
[2018-04-09] MEDS ORDERED: MORPHINE SULFATE 4 MG/ML SYR/VIAL IV PRN (13:00)
[2018-04-09 15:13] LABS: Basophils # (auto) 0 uL; Basophils % (auto) 0.8 % (0.0-2.0); Eosinophils # (auto) 0.1 uL; Eosinophils % (auto) 3.4 % (0.0-7.0); Hematocrit 26.8 % (41.0-53.0); Hemoglobin 8.9 g/dL (13.5-17.5); Lymphocytes # (auto) 0.3 uL; Lymphocytes % (auto) 7.1 % (10.0-50.0); Mean Corpuscular Hemoglobin 28.3 pg (28.0-32.0); Mean Corpuscular Hgb Conc. 33.3 g/dL (32.0-36.0); Mean Corpuscular Volume 84.9 fL (80.0-100.0); Monocytes # (auto) 0.6 uL; Monocytes % (auto) 13.5 % (0.0-12.0); Neutrophils # (auto) 3.1 uL; Neutrophils % (auto) 75.2 % (37.0-80.0); Nucleated Red Blood Cells % 0.1 %; Platelet Count (auto) 137 10^3/uL (140-450); Red Blood Cells 3.16 10^6/uL (4.5-5.90); White Blood Cell 4.1 10^3/uL (4.4-10.8)
[2018-04-09 15:18] LABS: Red Cell Distribution Width 21.4 % (11.8-14.3)
[2018-04-09 15:28] LABS: INR 1.33 (0.9-1.15); Partial Thromboplastin Time 28.4 sec (23.78-33.04)
[2018-04-09 15:33] LABS: Albumin 2.9 g/dL (3.4-5.0); Calcium 8.2 mg/dL (8.5-10.1); Potassium 3.4 mmol/L (3.5-5.1)
[2018-04-09 15:38] LABS: BUN/Creatinine Ratio 22.5; Total Protein 6.3 g/dL (6.4-8.2)
[2018-04-09] MEDS ORDERED: DEXTROSE (50%) 50ML SYRG IV PRN (15:45)
[2018-04-09] MEDS ORDERED: TEMAZEPAM 15 MG CAP PO PRN (15:45)
[2018-04-09] MEDS ORDERED: COLCHICINE 0.6 MG CAP PO ONE (15:45)
[2018-04-09] MEDS ORDERED: predniSONE 20 MG TAB PO ONE (15:45)
[2018-04-09 16:21] LABS: Urine Bacteria NONE SEEN /hpf (None Seen); Urine Blood Negative /uL (Negative); Urine Mucus FEW (None Seen); Urine Specific Gravity 1.007 (1.001-1.035); Urine WBC <1 /hpf (0 - 3)
[2018-04-09 17:00] VITALS: BP 108/70
[2018-04-09] MEDS: InsuLIN REG 1unit/0.01ml Soln (100units/ml) SC SCH ×2 (17:00→21:55)
[2018-04-09] MEDS: ACCU-CHEK COMFORT CURVE STRIP VI SCH ×2 (17:00→21:55)
[2018-04-09] MEDS: BUMETANIDE 1 MG TAB PO SCH (19:17)
[2018-04-09 22:00] VITALS: BP 103/62
[2018-04-09] MEDS ORDERED: ATORVASTATIN 20 MG TAB PO SCH (22:00)
[2018-04-10] MEDS: BUMETANIDE 1 MG TAB PO SCH (05:35)
[2018-04-10 05:45] VITALS: BP 101/60
[2018-04-10] MEDS: ACCU-CHEK COMFORT CURVE STRIP VI SCH ×2 (06:24→11:30)
[2018-04-10] MEDS: InsuLIN REG 1unit/0.01ml Soln (100units/ml) SC SCH ×2 (06:24→11:30)
[2018-04-10 06:55] LABS: Basophils # (auto) 0 uL; Basophils % (auto) 0.3 % (0.0-2.0); Eosinophils # (auto) 0 uL; Hematocrit 27.2 % (41.0-53.0); Hemoglobin 9.1 g/dL (13.5-17.5); Lymphocytes # (auto) 0.3 uL; Lymphocytes % (auto) 6.4 % (10.0-50.0); Mean Corpuscular Hgb Conc. 33.3 g/dL (32.0-36.0); Mean Corpuscular Volume 84.1 fL (80.0-100.0); Monocytes # (auto) 0.3 uL; Monocytes % (auto) 7.5 % (0.0-12.0); Neutrophils # (auto) 3.5 uL; Neutrophils % (auto) 85.8 % (37.0-80.0); Nucleated Red Blood Cells % 0.1 %; Platelet Count (auto) 143 10^3/uL (140-450); Red Blood Cells 3.24 10^6/uL (4.5-5.90); White Blood Cell 4.1 10^3/uL (4.4-10.8)
[2018-04-10 07:12] LABS: BUN/Creatinine Ratio 26.9; Calcium 8.5 mg/dL (8.5-10.1); Potassium 3.4 mmol/L (3.5-5.1)
[2018-04-10 07:15] LABS: Red Cell Distribution Width 21.2 % (11.8-14.3)
[2018-04-10 09:00] VITALS: BP 100/55
[2018-04-10] MEDS ORDERED: GABAPENTIN 100 MG CAP PO SCH (10:00)
[2018-04-10] MEDS ORDERED: predniSONE 20 MG TAB PO SCH (10:00)
[2018-04-10] MEDS ORDERED: METOLAZONE 5 MG TAB PO SCH (10:00)
[2018-04-10] MEDS ORDERED: COLCHICINE 0.6 MG CAP PO SCH (10:00)
[2018-04-10] MEDS ORDERED: PANTOPRAZOLE 40 MG TAB PO SCH (10:00)
[2018-04-10] MEDS ORDERED: ALBUMIN 25% 100 ML IV ONE (11:45)
[2018-04-10 12:39] VITALS: BP 100/55
[2018-04-10 13:00] VITALS: BP 95/47
== END 2018-04-10 14:15 | disposition home or self-care (01) | DRG 291 ==
LOC: TELE-WESTW 12:22
PROVIDERS: ADMIT Internal Medicine; ATTEND Internal Medicine
PROC: 0W9G3ZZ Drainage of Peritoneal Cavity, Percutaneous Approach (ICD-10-PCS; principal; 2018-04-10)
DX: I13.0 Hypertensive heart and chronic kidney disease with heart failure and stage 1 through stage 4 chronic kidney disease, or unspecified chronic kidney disease (principal); I50.43 Acute on chronic combined systolic (congestive) and diastolic (congestive) heart failure; R18.8 Other ascites; D68.69 Other thrombophilia; N18.3 Chronic kidney disease, stage 3 (moderate); I48.91 Unspecified atrial fibrillation; E11.22 Type 2 diabetes mellitus with diabetic chronic kidney disease; M10.9 Gout, unspecified; Z51.5 Encounter for palliative care; Z95.2 Presence of prosthetic heart valve; Z88.0 Allergy status to penicillin; Z88.5 Allergy status to narcotic agent; Z88.1 Allergy status to other antibiotic agents; Z88.8 Allergy status to other drugs, medicaments and biological substances; D63.1 Anemia in chronic kidney disease
CPT/HCPCS: 10022; 36415; 49083; 71045; 76700; 76942; 80048; 80053; 81001; 82962; 84550; 85025; 85610; 85730; P9047

== ENCOUNTER 2018-05-21 10:43 | Inpatient (IN) | payer OTHER ==
[~2018-05-21] VITALS: Ht 180.3 cm; Wt 81.6 kg
[~2018-05-21 10:43] MED LIST changes: +BUME1TAB25 PO; -FURO40TA PO
[2018-05-21 11:16] VITALS: BP 160/80
[2018-05-21] MEDS ORDERED: DEXTROSE (50%) 50ML SYRG IV PRN (11:45)
[2018-05-21] MEDS ORDERED: TEMAZEPAM 15 MG CAP PO PRN ×2 (11:45→12:00)
[2018-05-21] MEDS ORDERED: NITROGLYCERIN 0.4 MG SL TAB SL PRN (11:45)
[2018-05-21] MEDS ORDERED: MORPHINE SULFATE 4 MG/ML SYR/VIAL IV PRN (11:45)
[2018-05-21] MEDS ORDERED: PANTOPRAZOLE 40 MG TAB PO ONE (12:00)
[2018-05-21] MEDS ORDERED: CARVEDILOL 3.125 MG TAB PO ONE (12:00)
[2018-05-21] MEDS ORDERED: COLCHICINE 0.6 MG CAP PO ONE (12:00)
[2018-05-21] MEDS ORDERED: POTASSIUM CHL 10 Meq TABLET PO ONE (12:00)
[2018-05-21] MEDS ORDERED: GABAPENTIN 100 MG CAP PO ONE (12:00)
[2018-05-21] MEDS ORDERED: METOLAZONE 5 MG TAB PO ONE (12:00)
[2018-05-21 12:35] LABS: Basophils # (auto) 0.1 uL; Basophils % (auto) 1.1 % (0.0-2.0); Eosinophils # (auto) 0 uL; Eosinophils % (auto) 0.8 % (0.0-7.0); Hematocrit 29.4 % (41.0-53.0); Hemoglobin 9.5 g/dL (13.5-17.5); Lymphocytes # (auto) 0.3 uL; Lymphocytes % (auto) 5.8 % (10.0-50.0); Mean Corpuscular Hemoglobin 28.1 pg (28.0-32.0); Mean Corpuscular Hgb Conc. 32.3 g/dL (32.0-36.0); Monocytes # (auto) 0.6 uL; Monocytes % (auto) 10.8 % (0.0-12.0); Neutrophils # (auto) 4.3 uL; Neutrophils % (auto) 81.5 % (37.0-80.0); Platelet Count (auto) 174 10^3/uL (140-450); Red Blood Cells 3.38 10^6/uL (4.5-5.90); White Blood Cell 5.3 10^3/uL (4.4-10.8)
[2018-05-21 12:42] LABS: Albumin 2.8 g/dL (3.4-5.0); Calcium 8.8 mg/dL (8.5-10.1)
[2018-05-21 12:45] LABS: BUN/Creatinine Ratio 24.5
[2018-05-21 12:46] LABS: Red Cell Distribution Width 22.8 % (11.8-14.3)
[2018-05-21 12:53] LABS: INR 1.32 (0.9-1.15); Partial Thromboplastin Time 29.6 sec (23.78-33.04); Prothrombin Time 13.9 sec (9.27-12.13)
[2018-05-21 12:58] LABS: Potassium 5.7 mmol/L (3.5-5.1)
[2018-05-21] MEDS ORDERED: SODIUM POLYSTYRENE SULF 15 GM POWDER PO ONE (13:15)
[2018-05-21] MEDS: InsuLIN REG 1unit/0.01ml Soln (100units/ml) SC SCH ×2 (17:00→22:00)
[2018-05-21 17:01] VITALS: BP 73/45
[2018-05-21] MEDS: ACCU-CHEK COMFORT CURVE STRIP VI SCH ×2 (17:53→22:18)
[2018-05-21] MEDS: BUMETANIDE 1 MG TAB PO SCH (18:00)
[2018-05-21 22:00] VITALS: BP 88/58
[2018-05-21] MEDS ORDERED: GABAPENTIN 100 MG CAP PO SCH (22:00)
[2018-05-21] MEDS ORDERED: CARVEDILOL 3.125 MG TAB PO SCH (22:00)
[2018-05-21] MEDS ORDERED: POTASSIUM CHL 10 Meq TABLET PO SCH (22:00)
[2018-05-21] MEDS: ATORVASTATIN 20 MG TAB PO SCH (22:03)
[2018-05-22 05:04] VITALS: BP 92/51
[2018-05-22] MEDS: BUMETANIDE 1 MG TAB PO SCH ×2 (05:33→18:07)
[2018-05-22] MEDS: ACCU-CHEK COMFORT CURVE STRIP VI SCH (06:09)
[2018-05-22] MEDS: InsuLIN REG 1unit/0.01ml Soln (100units/ml) SC SCH (06:11)
[2018-05-22 08:57] VITALS: BP 89/53
[2018-05-22] MEDS: METOLAZONE 5 MG TAB PO SCH (10:00)
[2018-05-22] MEDS: GABAPENTIN 100 MG CAP PO SCH (10:00)
[2018-05-22] MEDS: COLCHICINE 0.6 MG CAP PO SCH (10:00)
[2018-05-22] MEDS ORDERED: ALBUMIN 25% 50 ML IV ONE (11:15)
[2018-05-22] MEDS: PANTOPRAZOLE 40 MG TAB PO SCH (11:29)
[2018-05-22 13:00] VITALS: BP 87/50
[2018-05-22 16:51] VITALS: BP_SYST 87; BP_SYST 90; BP_DIAS 50; BP_DIAS 59
[2018-05-22] MEDS: CARVEDILOL 3.125 MG TAB PO SCH (21:26)
[2018-05-22] MEDS: ATORVASTATIN 20 MG TAB PO SCH (21:50)
[2018-05-22 22:00] VITALS: BP 86/55
[2018-05-23 03:41] LABS: Urine Bacteria FEW /hpf (None Seen); Urine Blood Negative /uL (Negative); Urine Hyaline Cast FEW /lpf (0 - 2); Urine Specific Gravity 1.011 (1.001-1.035); Urine WBC 1 /hpf (0 - 3)
[2018-05-23 05:53] VITALS: BP 92/57
[2018-05-23] MEDS: BUMETANIDE 1 MG TAB PO SCH ×2 (06:00→17:23)
[2018-05-23 06:35] LABS: Basophils # (auto) 0 uL; Basophils % (auto) 0.5 % (0.0-2.0); Eosinophils # (auto) 0.1 uL; Eosinophils % (auto) 1.2 % (0.0-7.0); Hemoglobin 9.2 g/dL (13.5-17.5); Lymphocytes # (auto) 0.4 uL; Lymphocytes % (auto) 6.7 % (10.0-50.0); Mean Corpuscular Hgb Conc. 32.8 g/dL (32.0-36.0); Mean Corpuscular Volume 85.4 fL (80.0-100.0); Monocytes % (auto) 15.9 % (0.0-12.0); Neutrophils # (auto) 4.6 uL; Neutrophils % (auto) 75.7 % (37.0-80.0); Platelet Count (auto) 170 10^3/uL (140-450); Red Blood Cells 3.28 10^6/uL (4.5-5.90); White Blood Cell 6.1 10^3/uL (4.4-10.8)
[2018-05-23 06:47] LABS: Calcium 7.9 mg/dL (8.5-10.1)
[2018-05-23 06:50] LABS: BUN/Creatinine Ratio 29.8
[2018-05-23 07:01] LABS: Red Cell Distribution Width 22.6 % (11.8-14.3)
[2018-05-23 08:00] VITALS: BP 92/57
[2018-05-23] MEDS ORDERED: POTASSIUM CHLORIDE 20 MEQ, LIDOCAINE 1% (LOCAL ANESTH.) 2 ML in SODIUM CHL 0.9% 100 ML IV ONE (08:15)
[2018-05-23 09:00] VITALS: BP 84/49
[2018-05-23] MEDS ORDERED: LIDOCAINE 2%HCL (LOCAL ANESTH.) INJ 20ML MDV ONE (09:10)
[2018-05-23] MEDS ORDERED: MIDAZOLAM HCL 1MG/1ML-2 ML VIAL ONE (09:36)
[2018-05-23] MEDS ORDERED: fentaNYL CITRATE 100 MCG/2 ML VL ONE (09:39)
[2018-05-23] MEDS ORDERED: IODIXANOL 320MG/ML 100ML BTL IV ONE (09:45)
[2018-05-23] MEDS: CARVEDILOL 3.125 MG TAB PO SCH ×2 (10:00→22:00)
[2018-05-23] MEDS: GABAPENTIN 100 MG CAP PO SCH (10:00)
[2018-05-23] MEDS: METOLAZONE 5 MG TAB PO SCH (10:00)
[2018-05-23] MEDS ORDERED: HEPARIN SODIUM (PORCINE) 5000 UNITS/ML 1ML VIAL ONE (10:18)
[2018-05-23 13:00] VITALS: BP 83/47
[2018-05-23] MEDS ORDERED: NITROGLYCERIN 0.4 MG SL TAB SL PRN (13:00)
[2018-05-23] MEDS: PANTOPRAZOLE 40 MG TAB PO SCH (13:14)
[2018-05-23] MEDS: COLCHICINE 0.6 MG CAP PO SCH (13:14)
[2018-05-23] MEDS: SILDENAFIL CITRATE 20 MG TAB PO SCH ×2 (13:16→20:00)
[2018-05-23 17:00] VITALS: BP 75/45
[2018-05-23 21:27] VITALS: BP 70/41
[2018-05-23] MEDS: ATORVASTATIN 20 MG TAB PO SCH (21:34)
[2018-05-24 05:00] VITALS: BP 80/52
[2018-05-24] MEDS: BUMETANIDE 1 MG TAB PO SCH (05:27)
[2018-05-24 05:36] LABS: Basophils # (auto) 0 uL; Eosinophils # (auto) 0.1 uL; Eosinophils % (auto) 2.4 % (0.0-7.0); Lymphocytes # (auto) 0.4 uL; Monocytes # (auto) 0.8 uL; Neutrophils # (auto) 3.3 uL; White Blood Cell 4.7 10^3/uL (4.4-10.8)
[2018-05-24 05:59] LABS: BUN/Creatinine Ratio 32.7; Calcium 7.5 mg/dL (8.5-10.1); Potassium 3.1 mmol/L (3.5-5.1)
[2018-05-24 06:01] LABS: Basophils % (auto) 0.7 % (0.0-2.0); Hematocrit 25.6 % (41.0-53.0); Hemoglobin 8.4 g/dL (13.5-17.5); Lymphocytes % (auto) 7.9 % (10.0-50.0); Mean Corpuscular Hemoglobin 27.8 pg (28.0-32.0); Mean Corpuscular Hgb Conc. 32.8 g/dL (32.0-36.0); Monocytes % (auto) 17.8 % (0.0-12.0); Neutrophils % (auto) 71.2 % (37.0-80.0); Platelet Count (auto) 138 10^3/uL (140-450); Red Blood Cells 3.01 10^6/uL (4.5-5.90)
[2018-05-24 06:02] LABS: Red Cell Distribution Width 22.4 % (11.8-14.3)
[2018-05-24 08:00] VITALS: BP 80/52
[2018-05-24] MEDS: SILDENAFIL CITRATE 20 MG TAB PO SCH ×2 (08:00→14:00)
[2018-05-24 09:00] VITALS: BP 84/47
[2018-05-24] MEDS: COLCHICINE 0.6 MG CAP PO SCH (09:32)
[2018-05-24] MEDS: PANTOPRAZOLE 40 MG TAB PO SCH (09:32)
[2018-05-24] MEDS: CARVEDILOL 3.125 MG TAB PO SCH (10:00)
[2018-05-24] MEDS: GABAPENTIN 100 MG CAP PO SCH (10:00)
[2018-05-24] MEDS: METOLAZONE 5 MG TAB PO SCH (10:00)
[2018-05-24 13:00] VITALS: BP 89/47
[2018-05-24] MEDS ORDERED: POTASSIUM CHL 20 Meq TABLET PO ONE (14:45)
[2018-05-24 15:59] VITALS: BP 84/47
[2018-05-24] MEDS ORDERED: GABAPENTIN 100 MG CAP PO SCH (22:00)
== END 2018-05-24 17:40 | disposition home or self-care (01) | DRG 286 ==
LOC: TELE-EAST 10:43
PROVIDERS: ADMIT Internal Medicine; ATTEND Internal Medicine
PROC: 0W9G3ZZ Drainage of Peritoneal Cavity, Percutaneous Approach (ICD-10-PCS; 2018-05-21)
PROC: 4A023N8 Measurement of Cardiac Sampling and Pressure, Bilateral, Percutaneous Approach (ICD-10-PCS; principal; 2018-05-23)
PROC: B2111ZZ Fluoroscopy of Multiple Coronary Arteries using Low Osmolar Contrast (ICD-10-PCS; 2018-05-23)
PROC: B2151ZZ Fluoroscopy of Left Heart using Low Osmolar Contrast (ICD-10-PCS; 2018-05-23)
DX: I50.43 Acute on chronic combined systolic (congestive) and diastolic (congestive) heart failure (principal); N17.0 Acute kidney failure with tubular necrosis; R18.8 Other ascites; D68.69 Other thrombophilia; J96.10 Chronic respiratory failure, unspecified whether with hypoxia or hypercapnia; E11.22 Type 2 diabetes mellitus with diabetic chronic kidney disease; E78.5 Hyperlipidemia, unspecified; E77.8 Other disorders of glycoprotein metabolism; I27.20 Pulmonary hypertension, unspecified; I48.2 Chronic atrial fibrillation; W18.30XA Fall on same level, unspecified, initial encounter; S00.83XA Contusion of other part of head, initial encounter; I35.0 Nonrheumatic aortic (valve) stenosis; I34.0 Nonrheumatic mitral (valve) insufficiency; M10.9 Gout, unspecified; N18.3 Chronic kidney disease, stage 3 (moderate); Z91.81 History of falling; Z88.1 Allergy status to other antibiotic agents; Z88.5 Allergy status to narcotic agent; Z88.0 Allergy status to penicillin; Z95.1 Presence of aortocoronary bypass graft; Z95.2 Presence of prosthetic heart valve; Y93.89 Activity, other specified; Y92.89 Other specified places as the place of occurrence of the external cause; Y99.8 Other external cause status
CPT/HCPCS: 10022; 36415; 49083; 71045; 76700; 76942; 80048; 80053; 81001; 82040; 82962; 83036; 84132; 84520; 85025; 85610; 85730; 87081; 93005; 93460; 97163; 99152; A6257; C1751; G0378; J2001; J2250; Q9967